=== PATIENT | male | born 1945 | race Caucasian/White ===

== ENCOUNTER → 2023-03-15 | Outpatient (CLI) | payer OTHER | LOC: M PLAIMG 12:16 | PROVIDERS: ATTEND Nurse Practitioner Family | DX: J34.89 Other specified disorders of nose and nasal sinuses (principal); J32.9 Chronic sinusitis, unspecified; M51.35 Other intervertebral disc degeneration, thoracolumbar region; M51.37 Other intervertebral disc degeneration, lumbosacral region; M51.36 Other intervertebral disc degeneration, lumbar region; M43.17 Spondylolisthesis, lumbosacral region ==